=== PATIENT | male | born 1945 | race Asian ===

== ENCOUNTER 2018-06-27 14:40 | Emergency (ER) | payer OTHER ==
[2018-06-27] MEDS ORDERED: CLINDAMYCIN 600MG/D5W 600 MG/50 ML BAG IV ONE (16:18)
[2018-06-27 16:25] LABS: Potassium 3.9 mmol/L (3.5-5.1)
[2018-06-27 16:28] LABS: Absolute Lymphocytes (CBC) 1.3 K/uL (0.7-4.9); Absolute Monocytes 0.7 K/uL (0.1-1.3); Absolute Neutrophil 4.3 K/uL (1.8-8.0); Basophils % 0.2 % (0-1.3); Hematocrit 47.5 % (39.6-49.0); Lymphocytes % 20.2 % (15.3-44.8); MPV 7.8 fL (7.6-11.3); Monocytes % 10.9 % (3.3-12.3); RBC Red Blood Cell Count 5.25 M/uL (4.33-5.43)
--- NOTE | 2018-06-27 16:49 | ER ---
Nurse's Notes [facility] Name: Lyle Jeronimo Age: 73 yrs Sex: Male : 1945 Arrival Date: 06/27/2018 Time: 14:43 Bed 8 Private MD: Migel Santo Diagnosis: Cellulitis of right upper limb Presentation: 06/27 15:02 Presenting complaint: Patient states: "I was cleaning outside and I think an insect bit aa5 me and now my arm is red and swollen". pt c/o redness and swelling to right arm. Transition of care: patient was not received from another setting of care. Onset of symptoms was June 26, 2018. Risk Assessment: Do you want to hurt yourself or someone else? Patient reports no desire to harm self or others. Initial Sepsis Screen: Does the patient meet any 2 criteria? No. Patient's initial sepsis screen is negative. Does the patient have a suspected source of infection? No. Patient's initial sepsis screen is negative. Care prior to arrival: None. 15:02 Method Of Arrival: Ambulatory aa5 15:02 Acuity: COLLEEN 3 aa5 Historical: - Allergies: 15:04 No Known Allergies; aa5 - PMHx: 15:04 Hypertension; Borderline diabetes; aa5 - PSHx: 15:04 None; aa5 - Immunization history:: Adult Immunizations unknown. - Social history:: Smoking status: Patient/guardian denies using tobacco. - Ebola Screening: : No symptoms or risks identified at this time. Screenin:45 Abuse screen: Denies threats or abuse. Denies injuries from another. Nutritional sg screening: No deficits noted. Tuberculosis screening: No symptoms or risk factors identified. Never had TB. Fall Risk None identified. Assessment: 15:45 General: Appears in no apparent distress. uncomfortable, well groomed, well developed, sg well nourished, Behavior is calm, cooperative, appropriate for age. Pain: Complains of pain in right wrist and right hand Quality of pain is described as pressure, throbbing. Neuro: No deficits noted. Cardiovascular: Capillary refill is brisk in bilateral fingers Patient's skin is warm and dry. Chest pain is denied. Respiratory: Airway is patent Respiratory effort is even, unlabored, Respiratory pattern is regular, symmetrical, Breath sounds are clear. GI: No signs and/or symptoms were reported involving the gastrointestinal system. : No signs and/or symptoms were reported regarding the genitourinary system. EENT: No signs and/or symptoms were reported regarding the EENT system. Derm: Skin is intact, is healthy with good turgor, Skin is red, Skin temperature is hot to right hand. Musculoskeletal: Circulation, motion, and sensation intact. Range of motion: intact in all extremities, Swelling present in right hand. Vital Signs: 15:04 BP 132 / 72; Pulse 77; Resp 18 S; Temp 98.5(TE); Pulse Ox 96% on R/A; Weight 65.77 kg aa5 (R); Height 5 ft. 4 in. (162.56 cm) (R); Pain 0/10; 17:00 BP 133 / 77; Pulse 70; Resp 17; Pulse Ox 97% on R/A; Pain 0/10; sg 15:04 Body Mass Index 24.89 (65.77 kg, 162.56 cm) aa5 ED Course: 14:43 Patient arrived in ED. as 14:43 Migel Santo MD is Private Physician. as 15:02 Arm band placed on. aa5 15:03 Triage completed. aa5 15:32 Ana Qureshi FNP-C [facility]. kb 15:32 Shakir Lynch MD is Attending Physician. kb 15:45 Patient has correct armband on for positive identification. Bed in low position. Call sg light in reach. Side rails up X2. Pulse ox on. NIBP on. Head of bed elevated. 15:45 Initial lab(s) drawn, by me, sent to lab. First set of blood cultures drawn by me. sg Inserted saline lock: 22 gauge in left forearm, using aseptic technique. Blood collected. 15:45 No provider procedures requiring assistance completed. sg 16:00 Second set of blood cultures drawn by me. sg 16:01 Braden Giron, RN is Primary Nurse. sg 17:10 IV discontinued, intact, bleeding controlled, No redness/swelling at site. Pressure sg dressing applied. Administered Medications: 16:20 Drug: Clindamycin 600 mg Route: IVPB; Infused Over: 30 mins; Site: left forearm; sg Outcome: 16:48 Discharge ordered by . kb 17:00 Discharged to home ambulatory, with family. sg 17:00 Condition: good 17:00 Discharge instructions given to patient, nc manager, Instructed on discharge instructions, follow up and referral plans. medication usage, safety practices, Demonstrated understanding of instructions, follow-up care, medications, Prescriptions given X 1, continue OTC antihistamines 17:06 Patient left the ED. sg Signatures: Ana Qureshi, OCCUPATIONAL THERAPIST'S ASSISTANT-C BETTY-Braden Benitez RN RN sg Martinez, Amelia as Calderon, Audri, RN RN aa5
--- NOTE | 2018-06-27 16:49 | EDPHYS ---
Physician Documentation [facility] Name: Lyle Jeronimo Age: 73 yrs Sex: Male : 1945 Arrival Date: 06/27/2018 Time: 14:43 Bed 8 Private MD: Migel Santo ED Physician Shakir Lynch HPI: 06/27 15:52 This 73 yrs old Male presents to ER via Ambulatory with complaints of Insect Bite.kb 15:52 The patient presents with cellulitis of the right hand and dorsal aspect of right kb forearm. Description: erythematous, swollen, warm. Onset: The symptoms/episode began/occurred last night, at 20:00. Possible cause(s): insect sting, black ant. Associated signs and symptoms: Pertinent positives: erythema, swelling, Pertinent negatives: discharge, drainage, foreign body sensation, fever, headache, nausea, shortness of breath, vomiting. Modifying factors: the symptoms are alleviated by nothing, the symptoms are aggravated by nothing. Severity of symptoms: At their worst the symptoms were moderate, in the emergency department the symptoms are unchanged. The patient has not experienced similar symptoms in the past. The patient has not recently seen a physician. Pt states he was doing yard work last night and got bit by a black ant. Reports itching last night and redness. Today has swelling to right hand, right forearm and streaking up right arm. Historical: - Allergies: 15:04 No Known Allergies; aa5 - PMHx: 15:04 Hypertension; Borderline diabetes; aa5 - PSHx: 15:04 None; aa5 - Immunization history:: Adult Immunizations unknown. - Social history:: Smoking status: Patient/guardian denies using tobacco. - Ebola Screening: : No symptoms or risks identified at this time. ROS: 15:51 Constitutional: Negative for fever, chills, and weight loss, ENT: Negative for injury, kb pain, and discharge, Neck: Negative for injury, pain, and swelling, Cardiovascular: Negative for chest pain, palpitations, and edema, Respiratory: Negative for shortness of breath, cough, wheezing, and pleuritic chest pain, Abdomen/GI: Negative for abdominal pain, nausea, vomiting, diarrhea, and constipation, MS/Extremity: Negative for injury and deformity, Neuro: Negative for headache, weakness, numbness, tingling, and seizure. 15:51 Skin: Positive for cellulitis, erythema, swelling, of the right hand and dorsal aspect of right forearm. Exam: 15:50 Constitutional: This is a well developed, well nourished patient who is awake, alert, kb and in no acute distress. Head/Face: Normocephalic, atraumatic. Chest/axilla: Normal chest wall appearance and motion. Nontender with no deformity. No lesions are appreciated. Cardiovascular: Regular rate and rhythm with a normal S1 and S2. No gallops, murmurs, or rubs. Normal PMI, no JVD. No pulse deficits. Respiratory: Lungs have equal breath sounds bilaterally, clear to auscultation and percussion. No rales, rhonchi or wheezes noted. No increased work of breathing, no retractions or nasal flaring. Abdomen/GI: Soft, non-tender, with normal bowel sounds. No distension or tympany. No guarding or rebound. No evidence of tenderness throughout. MS/ Extremity: Pulses equal, no cyanosis. Neurovascular intact. Full, normal range of motion. Neuro: Awake and alert, GCS 15, oriented to person, place, time, and situation. Cranial nerves II-XII grossly intact. Motor strength 5/5 in all extremities. Sensory grossly intact. Cerebellar exam normal. Normal gait. 15:50 Skin: cellulitis, that is moderate, on the right hand and dorsal aspect of right forearm. Vital Signs: 15:04 BP 132 / 72; Pulse 77; Resp 18 S; Temp 98.5(TE); Pulse Ox 96% on R/A; Weight 65.77 kg aa5 (R); Height 5 ft. 4 in. (162.56 cm) (R); Pain 0/10; 17:00 BP 133 / 77; Pulse 70; Resp 17; Pulse Ox 97% on R/A; Pain 0/10; sg 15:04 Body Mass Index 24.89 (65.77 kg, 162.56 cm) aa5 MDM: 15:33 Patient medically screened. kb 15:50 Data reviewed: vital signs, nurses notes. Data interpreted: Pulse oximetry: on room air kb is 96 %. Interpretation: normal. 16:38 Counseling: I had a detailed discussion with the patient and/or guardian regarding: the kb historical points, exam findings, and any diagnostic results supporting the discharge/admit diagnosis, lab results, the need for outpatient follow up, a family practitioner, to return to the emergency department if symptoms worsen or persist or if there are any questions or concerns that arise at home. 16:46 ED course: Educated on diagnostic results. Will give outpatient antibiotics and have pt kb follow up with PCP. Educated to return for admission if symptoms worsen. . 06/27 15:39 Order name: CBC with Diff; Complete Time: 16:37 kb 06/27 15:39 Order name: Basic Metabolic Panel; Complete Time: 16:37 kb 06/27 15:39 Order name: IV Start; Complete Time: 16:01 kb 06/27 15:39 Order name: Blood Culture Adult (2) kb Administered Medications: 16:20 Drug: Clindamycin 600 mg Route: IVPB; Infused Over: 30 mins; Site: left forearm; sg Disposition: 17:55 Co-signature as Attending Physician, Shakir Lynch MD. rn Disposition: 06/27/18 16:48 Discharged to Home. Impression: Cellulitis of right upper limb. - Condition is Stable. - Discharge Instructions: Cellulitis, Adult, [id number]. - Prescriptions for Clindamycin HCl 300 mg Oral Capsule - take 1 capsule by ORAL route every 6 hours for 10 days; 40 capsule. - Medication Reconciliation Form, Thank You Letter, Antibiotic Education, Prescription Opioid Use form. - Follow up: Emergency Department; When: As needed; Reason: Worsening of condition. Follow up: Private Physician; When: 2 - 3 days; Reason: Recheck today's complaints, Continuance of care, Re-evaluation by your physician. Signatures: Dispatcher [employer] EDAna Hdez, BETTY-C PIPE FITTER SOFT COPPER-Braden Benitez RN RN sg Nieto, Roman, MD MD rn Calderon, Audri, RN RN aa5 Corrections: (The following items were deleted from the chart) 17:06 16:48 06/27/2018 16:48 Discharged to Home. Impression: Cellulitis of right upper limb. sg Condition is Stable. Forms are Medication Reconciliation Form, Thank You Letter, Antibiotic Education, Prescription Opioid Use. Follow up: Emergency Department; When: As needed; Reason: Worsening of condition. Follow up: Private Physician; When: 2 - 3 days; Reason: Recheck today's complaints, Continuance of care, Re-evaluation by your physician. kb
== END 2018-06-27 17:06 | disposition home or self-care (01) ==
LOC: ER 14:40
DX: L03.113 Cellulitis of right upper limb (principal)
CPT/HCPCS: 36415; 80048; 85025; 87040; 96374; 99284